=== PATIENT | female | born 1985 | race African-American/Black ===

== ENCOUNTER 2022-01-13 14:17 | Emergency (ER) | payer OTHER ==
[~2022-01-13] VITALS: Ht 165.1 cm; Wt 71.0 kg
[2022-01-13 16:09] LABS: BASOPHILS % 0.2 % (0.0-2.0); CHLORIDE 108 mEq/L (98-107); EOSINOPHILS % 0.4 % (0.0-5.0); HEMATOCRIT. 42.5 % (36.0-48.0); HEMOGLOBIN. 14.1 g/dL (12.0-16.0); LYMPHOCYTES % 14.6 % (20.0-50.0); MEAN CORPUSCULAR HEMOGLOBIN 28.8 pg (28.0-32.0); MEAN CORPUSCULAR VOLUME 87.1 fL (81.0-99.0); MEAN PLATELET VOLUME 7.1 fl (7.4-10.4); MONOCYTES % 5.8 % (2.0-8.0); PLATELET 285 x1000/uL (130-400); RED BLOOD CELL COUNT 4.88 mill/uL (4.2-5.4); RED CELL DISTRIBUTION WIDTH 14.6 % (11.6-14.6)
[2022-01-13 16:22] LABS: HCG SCREEN NEGATIVE
[2022-01-13 16:25] LABS: ETHANOL BLOOD < 10 mg/dL; T4 FREE 1.18 ng/dL (0.76-1.46)
[2022-01-13] MEDS ORDERED: DEXTROSE 50% WATER 50ML SYRINGE IV ONE (16:30)
[2022-01-13 21:26] LABS: CLARITY URINE CLEAR (CLEAR); COLOR URINE YELLOW (YELLOW); KETONES URINE 1+ (NEGATIVE); LEUKOCYTE ESTERASE URINE NEGATIVE (NEGATIVE); NITRITE URINE NEGATIVE (NEGATIVE); OCCULT BLOOD URINE NEGATIVE (NEGATIVE); PH URINE 5.5 (4.5-8.0); PROTEIN URINE NEGATIVE (NEGATIVE); SPECIFIC GRAVITY URINE 1.007 (1.005-1.030); UROBILINOGEN URINE 0.2 E.U./dL (0.2-1.0)
[2022-01-13 21:45] LABS: *BARBITURATES SCREEN URINE NEGATIVE (NEGATIVE); *COCAINE SCREEN URINE NEGATIVE (NEGATIVE); CANNABINOID URINE SCREEN NEGATIVE (NEGATIVE); METHADONE URINE SCREEN NEGATIVE (NEGATIVE); OPIATES URINE SCREEN NEGATIVE (NEGATIVE); PHENCYCLIDINE URINE SCREEN NEGATIVE (NEGATIVE)
[2022-01-13 21:50] LABS: *AMPHETAMINES SCREEN URINE PRESUMTIVE POSITIVE (NEGATIVE); *BENZODIAZEPINES SCREEN URINE PRESUMTIVE POSITIVE (NEGATIVE)
[2022-01-13 22:00] VITALS: BP 130/80
== END 2022-01-14 00:17 | disposition home or self-care (01) ==
LOC: ER 14:17 → EDBD 14:17 → ER 01-14 00:17
DX: F20.9 Schizophrenia, unspecified (principal); F31.9 Bipolar disorder, unspecified; R45.6 Violent behavior; Z20.822 Contact with and (suspected) exposure to COVID-19
CPT/HCPCS: 36415; 80053; 80305; 80320; 81003; 82962; 83690; 84439; 84443; 84703; 85025; 87426; 96374; 99283; C9803; G0480

== ENCOUNTER 2022-11-26 12:13 | Emergency (ER) | payer OTHER ==
[~2022-11-26] VITALS: Ht 167.6 cm; Wt 74.0 kg
[2022-11-26 12:16] VITALS: O2SAT 99
[2022-11-26 13:05] LABS: BASOPHILS % 0.3 % (0.0-2.0); EOSINOPHILS % 0.3 % (0.0-5.0); HEMATOCRIT. 41.8 % (36.0-48.0); HEMOGLOBIN. 13.8 g/dL (12.0-16.0); LYMPHOCYTES % 21.3 % (20.0-50.0); MEAN CORPUSCULAR HEMOGLOBIN 29.1 pg (28.0-32.0); MEAN CORPUSCULAR VOLUME 88.5 fL (81.0-99.0); MEAN PLATELET VOLUME 6.5 fl (7.4-10.4); MONOCYTES % 5.3 % (2.0-8.0); NEUTROPHILS % 72.8 % (40.0-76.0); PLATELET 267 x1000/uL (130-400); RED BLOOD CELL COUNT 4.73 mill/uL (4.2-5.4); RED CELL DISTRIBUTION WIDTH 15.3 % (11.6-14.6)
[2022-11-26 13:13] LABS: CHLORIDE 108 mEq/L (98-107)
[2022-11-26 13:16] LABS: CLARITY URINE CLEAR (CLEAR); COLOR URINE YELLOW (YELLOW); KETONES URINE 2+ (NEGATIVE); LEUKOCYTE ESTERASE URINE NEGATIVE (NEGATIVE); NITRITE URINE NEGATIVE (NEGATIVE); OCCULT BLOOD URINE 1+ (NEGATIVE); PROTEIN URINE NEGATIVE (NEGATIVE)
[2022-11-26 13:21] LABS: ETHANOL BLOOD < 10 mg/dL (-10)
[2022-11-26 13:56] LABS: *BARBITURATES SCREEN URINE NEGATIVE (NEGATIVE); CANNABINOID URINE SCREEN NEGATIVE (NEGATIVE); METHADONE URINE SCREEN NEGATIVE (NEGATIVE); OPIATES URINE SCREEN NEGATIVE (NEGATIVE); PHENCYCLIDINE URINE SCREEN NEGATIVE (NEGATIVE)
[2022-11-26 13:57] LABS: *AMPHETAMINES SCREEN URINE PRESUMTIVE POSITIVE (NEGATIVE); *BENZODIAZEPINES SCREEN URINE PRESUMTIVE POSITIVE (NEGATIVE); *COCAINE SCREEN URINE PRESUMTIVE POSITIVE (NEGATIVE)
[2022-11-26 21:20] VITALS: BP 148/68; PULSE 98; RESP 18; TEMP 97.5
== END 2022-11-26 21:37 | disposition home or self-care (01) ==
LOC: ER 12:13
DX: T43.651A Poisoning by methamphetamines accidental (unintentional), initial encounter (principal); F14.10 Cocaine abuse, uncomplicated; X58.XXXA Exposure to other specified factors, initial encounter
CPT/HCPCS: 80053; 80305; 81003; 81025; 80307; 80329; 80320; 85025; 36415; 99283; Z7610 ×2; A4315; G0480

== ENCOUNTER 2023-04-01 16:18 | Emergency (ER) | payer OTHER ==
[~2023-04-01] VITALS: Ht 160 cm; Wt 70.3 kg
[2023-04-01 16:31] VITALS: BP 137/86; PULSE 95; RESP 16; TEMP 98.2; O2SAT 98
== END 2023-04-01 20:48 | disposition left against medical advice (07) ==
LOC: ER 16:18
DX: R00.2 Palpitations (principal); F19.90 Other psychoactive substance use, unspecified, uncomplicated; F14.90 Cocaine use, unspecified, uncomplicated; F15.90 Other stimulant use, unspecified, uncomplicated
CPT/HCPCS: 93005; 99283